=== PATIENT | male | born 1940 | race African-American/Black ===

== ENCOUNTER 2019-02-28 03:33 | Emergency (ER) | payer MEDICARE ==
[~2019-02-28] VITALS: Ht 170.2 cm; Wt 121.1 kg
[~2019-02-28 03:33] MED LIST: ASPI-630 PO; ATEN50TA PO; COLC25PO MC; GLYB5TAB3 PO; HYDR-2145 PO; HYDR-3164 PO; HYDR1KIT14 RC; HYPR15DR9 OP; LISI-130 PO; MELO15TA23 PO; NAPR-682 PO; PIOG15TA63 PO; TAMS0.4C97 PO
[2019-02-28 04:38] LABS: BASO # 0.1 x10^3/uL (0.0-0.2); BASO % 1 % (0-3); EOS # 0.4 x10^3/uL (0.0-0.7); EOS % 7 % (0-3); HEMOGLOBIN 10.8 g/dL (13.0-17.5); LYMPH % 18 % (24-48); MEAN CORPUSCULAR HEMOGLOBIN 28 pg (25-35); MEAN CORPUSCULAR HGB CONC 33 g/dL (31-37); MEAN CORPUSCULAR VOLUME 87 fL (79-100); MONO # 0.8 x10^3/uL (0.0-1.1); MONO % 14 % (0-9); NEUT # 3.4 x10^3/uL (1.8-7.7); NEUT % 60 % (31-73); PLATELET COUNT 256 x10^3/uL (140-400); RED CELL DISTRIBUTION WIDTH 14.6 % (11.5-14.5); WHITE BLOOD COUNT 5.6 x10^3/uL (4.0-11.0)
[2019-02-28 04:46] LABS: CALCIUM 8.9 mg/dL (8.5-10.1); CREATININE 2.1 mg/dL (0.7-1.3); GFR 37.1; POTASSIUM 3.8 mmol/L (3.5-5.1)
[2019-02-28 04:55] LABS: ALBUMIN/GLOBULIN RATIO 0.7 (1.0-1.7); TOTAL BILIRUBIN 0.3 mg/dL (0.2-1.0); TOTAL PROTEIN 7.5 g/dL (6.4-8.2)
[2019-02-28 05:00] VITALS: BP 157/62
[2019-02-28] MEDS ORDERED: TRAM50TA PO (05:11)
--- NOTE | 2019-02-28 05:11 | PHYS DOC ---
Past Medical History Past Medical History: Diabetes-Type I, Hypertension Past Surgical History: Other Additional Past Surgical Histo: Back Alcohol Use: Rarely Drug Use: None Adult General Chief Complaint Chief Complaint: LOWER EXTREMITY SWELLING [facility] HPI 78-year-old male presents to the emergency Department complaints of bilateral lower extremity swelling, pain. Patient has underlying history of myeloma, hypertension, diabetes, congestive heart failure. He denies any chest pain, shortness of breath. States he's had pain in his lower extremities worsening swelling, he currently takes Lasix 40 mg twice a day. He is here because he is unable sleep for the last couple of days secondary to the pain. Nothing makes his pain better, nothing makes his pain worse. Patient states he has a follow-up with cardiology on Friday. Review of Systems Review of Systems Constitutional: Denies fever or chills [] Respiratory: Denies cough or shortness of breath [] Cardiovascular: No additional information not addressed in HPI [] GI: Denies abdominal pain, nausea, vomiting, bloody stools or diarrhea [] Musculoskeletal: Denies back pain or joint pain, + bilateral lower ext edema [] All other systems were reviewed and found to be within normal limits, except as documented in this note. Current Medications Current Medications Current Medications Medications (Trade) Dose Ordered Sig/Yesenia Start Time Stop Time Status Last Admin Dose Admin Metolazone (Zaroxolyn) 2.5 mg 1X 02/28/19 05:15 UNV Allergies Allergies Allergies Coded Allergies Type Severity Reaction Last Updated Verified Penicillins Allergy Unknown 04/18/14 Yes Physical Exam Physical Exam Constitutional: Well developed, well nourished, no acute distress, non-toxic appearance. [] Cardiovascular:Heart rate regular rhythm, no murmur [] Lungs & Thorax: Bilateral breath sounds clear to auscultation [] Abdomen: Bowel sounds normal, soft, no tenderness, no masses, no pulsatile masses. [] Skin: Warm, dry, no erythema, no rash. [] Extremities: No tenderness, bilateral lower ext edema (acute on chronic)[] Neurologic: Alert and oriented X 3, no focal deficits noted. [] Psychologic: Affect normal, judgement normal, mood normal. [] Current Patient Data Vital Signs Vital Signs Date Time Temp Pulse Resp B/P (MAP) Pulse Ox O2 Delivery O2 Flow Rate FiO2 02/28/19 03:38 98.3 88 18 158/86 (110) 98 Room Air 98.3 Lab Values Laboratory Tests Test 02/28/19 04:30 White Blood Count 5.6 x10^3/uL (4.0-11.0) Red Blood Count 3.80 x10^6/uL (4.30-5.70) L Hemoglobin 10.8 g/dL (13.0-17.5) L Hematocrit 33.0 % (39.0-53.0) L Mean Corpuscular Volume 87 fL (79-100) Mean Corpuscular Hemoglobin 28 pg (25-35) Mean Corpuscular Hemoglobin Concent 33 g/dL (31-37) Red Cell Distribution Width 14.6 % (11.5-14.5) H Platelet Count 256 x10^3/uL (140-400) Neutrophils (%) (Auto) 60 % (31-73) Lymphocytes (%) (Auto) 18 % (24-48) L Monocytes (%) (Auto) 14 % (0-9) H Eosinophils (%) (Auto) 7 % (0-3) H Basophils (%) (Auto) 1 % (0-3) Neutrophils # (Auto) 3.4 x10^3/uL (1.8-7.7) Lymphocytes # (Auto) 1.0 x10^3/uL (1.0-4.8) Monocytes # (Auto) 0.8 x10^3/uL (0.0-1.1) Eosinophils # (Auto) 0.4 x10^3/uL (0.0-0.7) Basophils # (Auto) 0.1 x10^3/uL (0.0-0.2) Sodium Level 138 mmol/L (136-145) Potassium Level 3.8 mmol/L (3.5-5.1) Chloride Level 102 mmol/L (98-107) Carbon Dioxide Level 24 mmol/L (21-32) Anion Gap 12 (6-14) Blood Urea Nitrogen 38 mg/dL (8-26) H Creatinine 2.1 mg/dL (0.7-1.3) H Estimated GFR (Cockcroft-Gault) 37.1 BUN/Creatinine Ratio 18 (6-20) Glucose Level 133 mg/dL (70-99) H Calcium Level 8.9 mg/dL (8.5-10.1) Total Bilirubin 0.3 mg/dL (0.2-1.0) Aspartate Amino Transferase (AST) 18 U/L (15-37) Alanine Aminotransferase (ALT) 10 U/L (16-63) L Alkaline Phosphatase 89 U/L (46-116) UL-Wxn-Q-Type Natriuretic Peptide 1549 pg/mL (0-449) H Total Protein 7.5 g/dL (6.4-8.2) Albumin 3.0 g/dL (3.4-5.0) L Albumin/Globulin Ratio 0.7 (1.0-1.7) L Laboratory Tests 02/28/19 04:30 Laboratory Tests 02/28/19 04:30 EKG EKG [] Radiology/Procedures Radiology/Procedures [] Course & Med Decision Making Course & Med Decision Making Pertinent Labs and Imaging studies reviewed. (See chart for details) []78-year-old male presents to the emergency Department complaints of bilateral lower extremity swelling, pain. Patient has underlying history of myeloma, hypertension, diabetes, congestive heart failure. He denies any chest pain, shortness of breath. States he's had pain in his lower extremities worsening swelling, he currently takes Lasix 40 mg twice a day. He is here because he is unable sleep for the last couple of days secondary to the pain. Nothing makes his pain better, nothing makes his pain worse. Patient states he has a follow-up with cardiology on Friday. Labs reviewed creat 2.1 (CKD 2) CXR without acute process identified Recommend continued lasix 40mg BID Metolazone 2.5mg po x 1 in the ER Recommend follow up with Cardiology as scheduled Return precautions provided [employer] Disclaimer Dragon Disclaimer This electronic medical record was generated, in whole or in part, using a voice recognition dictation system. Departure Departure Impression: Primary Impression: Bilateral lower extremity edema Additional Impressions: Bilateral lower extremity pain CKD (chronic kidney disease), stage II Disposition: 01 HOME, SELF-CARE Condition: STABLE Referrals: UNKNOWN PCP NAME (PCP) Patient Instructions: Peripheral Edema Additional Instructions: Recommend follow up with PCP 3 - 5 days Return to the ER with worsening symptoms, intractable pain, fever, altered menta l status Tylenol as needed for pain Continue lasix 40mg BID Metolazone x1 given in the ER Recommend follow up with Cardiology as scheduled Tramadol rx provided x 3 Scripts Tramadol Hcl (TRAMADOL HCL) 50 Mg Tablet 50 MG PO Q6HRS PRN for PAIN for 3 Days, #12 TAB Prov: REDD FINNEY MD 02/28/19 Problem Qualifiers REDD FINNEY MD Feb 28, 2019 05:11
[2019-02-28] MEDS ORDERED: metOLazone 2.5 MG TABLET PO ONE (05:30)
--- NOTE | 2019-02-28 06:35 | RAD ---
Study: CHEST AP ONLY Indication: Cough. Comparison: 02/18/2013 Findings: Right-sided Port-A-Cath with the catheter tip located within the mid superior vena cava. Unchanged configuration of the cardiomediastinal silhouette which is mildly prominent though this may be in part related to portable technique. No pneumothorax, lobar consolidation or large effusion. Suspected mild basilar volume loss. Similar configuration of the hilar structures. Impression: Similar mild prominence of the cardiomediastinal silhouette without findings of overt failure. No findings typical of an organizing pneumonia. Electronically signed by: LUL SAMUEL MD (02/28/2019 6:32 AM) [facility]
== END 2019-02-28 05:30 | disposition home or self-care (01) ==
LOC: ER 03:33
DX: R60.0 Localized edema (principal); M79.605 Pain in left leg; M79.604 Pain in right leg; I13.0 Hypertensive heart and chronic kidney disease with heart failure and stage 1 through stage 4 chronic kidney disease, or unspecified chronic kidney disease; E10.22 Type 1 diabetes mellitus with diabetic chronic kidney disease; N18.2 Chronic kidney disease, stage 2 (mild); I50.9 Heart failure, unspecified; Z88.0 Allergy status to penicillin
CPT/HCPCS: 36415; 71045; 80053; 83880; 85025; 99285